=== PATIENT | female | born 1945 | race Caucasian/White ===

== ENCOUNTER 2018-03-27 09:12 | Day surgery (SDC) | payer MEDICARE ==
[~2018-03-27] VITALS: Ht 147.3 cm; Wt 89.8 kg
[~2018-03-27 09:12] MED LIST: CALCIUM 1000 + D PO; DETROL1 MG PO; FISH OIL300 MG PO; FOSAMAX70 MG PO; LASIX 20 MG TAB20 MG PO; LASIX20 MG PO; LIPITOR20 MG PO; PANTOPRAZOLE SO40 MG PO; PRILOSEC40 MG PO; ROSUVASTATIN CA10 MG PO; SIMVASTATIN20 MG PO; SYNTHROID75 MCG PO
[2018-03-27 11:39] VITALS: BP 122/58
[2018-03-27] MEDS ORDERED: CIPROFLOXACN500 MG PO (11:48)
[2018-03-27] MEDS ORDERED: METRONIDAZOL500 MG PO (11:48)
== END 2018-03-27 12:04 | disposition home or self-care (01) ==
LOC: ENDO 09:12 → ORM 13:45 → ENDO 13:45
PROVIDERS: ATTEND Surgery
PROC: 0DJD8ZZ Inspection of Lower Intestinal Tract, Via Natural or Artificial Opening Endoscopic (ICD-10-PCS; principal; 2018-03-27)
DX: R15.9 Full incontinence of feces (principal); K57.33 Diverticulitis of large intestine without perforation or abscess with bleeding; Q43.8 Other specified congenital malformations of intestine

== ENCOUNTER 2018-07-05 08:57 | Emergency (ER) | payer MEDICARE ==
[~2018-07-05] VITALS: Ht 147.3 cm; Wt 100.0 kg
[~2018-07-05 08:57] MED LIST changes: +CIPROFLOXACN500 MG PO; +METRONIDAZOL500 MG PO
[2018-07-05] MEDS ORDERED: PERCOCET 5/325M1 TAB PO (09:20)
[2018-07-05] MEDS ORDERED: BACTRIM DS1 TAB PO (09:20)
[2018-07-05 09:32] LABS: IMMATURE GRANULOCYTES 1.5 % (0.0-5.0); MEAN CELL VOLUME 90.2 fL CALC (80.0-100.0); MEAN CORPUSCULAR HGB 28.7 pG CALC (26.0-32.0); MEAN CORPUSCULAR HGB CONC 31.8 g/L CALC (32.0-36.0); NEUT# 18.23 thou/uL (2.00-7.15); RED BLOOD COUNT 3.17 mill/uL (4.20-5.60); RED CELL DISTRI WIDTH 15.1 % (11.5-15.5)
[2018-07-05 09:35] LABS: HEMOGLOBIN 9.1 g/dl (12.0-16.0)
[2018-07-05 09:36] LABS: HEMATOCRIT 28.6 % (37.0-47.0)
[2018-07-05 09:48] LABS: ALKALINE PHOSPHATASE 96 u/l (38-126); ANION GAP 15 (6-22 (CALC)); BILIRUBIN, TOTAL 0.5 mg/dL (0.0-1.4); BUN 7 mg/dL (8-23); BUN/CREATININE RATIO 12 (12-20 (CALC)); CARBON DIOXIDE 23 mmol/l (22-30); CHLORIDE 103 mmol/l (95-108); CREATININE 0.6 mg/dL (0.5-1.0); GFR > 60 ML/MIN (>=60 (CALC)); GFR FOR AFR.AMER. > 60 ML/MIN (>=60 (CALC)); POTASSIUM 4.5 mmol/l (3.5-5.1); SGOT/AST 29 u/l (9-36); SODIUM 136 mmol/l (137-146)
[2018-07-05 09:49] LABS: ALBUMIN 2.9 g/dL (3.2-5.0); TOTAL PROTEIN 5.6 g/dL (6.3-8.2)
[2018-07-05 13:03] VITALS: BP 115/82
== END 2018-07-05 13:03 ==
LOC: ED 08:57
PROVIDERS: Emergency Medicine
DX: T81.31XA Disruption of external operation (surgical) wound, not elsewhere classified, initial encounter (principal); E78.5 Hyperlipidemia, unspecified; Y83.6 Removal of other organ (partial) (total) as the cause of abnormal reaction of the patient, or of later complication, without mention of misadventure at the time of the procedure; Z90.49 Acquired absence of other specified parts of digestive tract
CPT/HCPCS: Q9967

== ENCOUNTER 2024-01-01 13:45 | Inpatient (IN) | payer MEDICARE ==
[~2024-01-01] VITALS: Ht 147.3 cm; Wt 87.4 kg
[~2024-01-01 13:45] MED LIST changes: +BACTRIM DS1 TAB PO; +BUMETANIDE1 MG PO; +LEVOFLOXACIN500MG PO; +LEVOTHYROXIN75 MC1 PO; +OMEPRAZOLE20 M3 PO; +PERCOCET 5/321 COMBO PO; +PERCOCET 5/325M1 TAB PO; +STIOLTO RESPIMA1 AER; -SYNTHROID75 MCG PO
[2024-01-02] MEDS ORDERED: FAMOTIDINE 10MG/ML 2ML SDV IV ONE (07:12)
[2024-01-02] MEDS ORDERED: LACTATED RINGER'S 1,000 ML IV ONE (07:12)
[2024-01-02] MEDS ORDERED: CLINDAMYCIN PHOSPHATE 50 ML IV ONE (07:12)
[2024-01-02] MEDS ORDERED: POTASSIUM CHLORIDE 20MEQ 100 ML IV SCH (08:30)
[2024-01-02] MEDS ORDERED: D5 1/2 NaCL W/KCL 40MEQ 1,000 ML IV PRN (08:55)
[2024-01-02] MEDS ORDERED: HYDROmorphone HCL 2 MG/AMP IV PRN (08:55)
[2024-01-02] MEDS ORDERED: ONDANSETRON HCl 4 MG/2 ML SDV IV PRN (08:55)
[2024-01-02] MEDS ORDERED: oxyCODONE 5MG/ ACETAMINOPHEN 325MG TAB PO PRN (08:55)
[2024-01-02] MEDS ORDERED: LABETALOL HCL 20 MG/ 4 ML CARTRG IV PRN (09:00)
[2024-01-02] MEDS ORDERED: KETOROLAC TROMETHAMINE 15 MG/ML SDV ONE (09:05)
[2024-01-02] MEDS ORDERED: HYDROmorphone HCL 2 MG/AMP ONE (09:25)
[2024-01-02] MEDS ORDERED: SODIUM CHLORIDE 0.9% 10 ML SYR ONE (09:59)
--- NOTE | 2024-01-02 10:15 | NUR ---
PT ARRIVED TO [facility] FROM THE OR VIA STRETCHER. BEDSIDE REPORT GIVEN. PATIENT A&OX3. BREATHING EVEN AND UNLBAORED ON ROOM AIR. LUNG SOUNDS CLEAR. 20G IV IN RAC. CENTRAL LINE IN LEFT UPPER CHEST. PT COMPLAINED OF PAIN IN THE ABD AREA; RATED AT A 2. COMPLAINTS OF NAUSEA. ZOFRAN AND TORODOL GIVEN. FAMILY MEMBER AT BEDSIDE. BED IN LOWEST POSITION. CALL LIGHT WITHIN REACH, VERBALIZED UNDERTSANDING OF USE. NO FURTHER NEEDS AT THIS TIME.
[2024-01-02 10:59] VITALS: BP 123/51
[2024-01-02] MEDS ORDERED: Levofloxacin 500 mg Premix 100 ML IV SCH (11:00)
--- NOTE | 2024-01-02 11:45 | NUR ---
SETUP ASSISTANCE PROVIDED WITH LUNCH TRAY
[2024-01-02] MEDS ORDERED: KETOROLAC TROMETHAMINE 15 MG/ML SDV IV SCH (13:30)
[2024-01-02] MEDS ORDERED: STERILE WATER FOR IRRIGATION 1,000 ML BTL IR ONE (14:22)
[2024-01-02] MEDS ORDERED: SODIUM CHLORIDE 1,000 ML BTL IR ONE (14:22)
[2024-01-02 14:38] VITALS: BP 99/43
--- NOTE | 2024-01-02 14:45 | NUR ---
VISITOR AT BEDSIDE, PT DENIES ANY NEEDS AT THIS TIME
[2024-01-02] MEDS ORDERED: LACTATED RINGER'S 1,000 ML BAG IV ONE (15:16)
[2024-01-02] MEDS ORDERED: SUGAMMADEX SODIUM 200 MG/2 ML SDV IV ONE (15:16)
[2024-01-02] MEDS ORDERED: ROCURONIUM BROMIDE 10 MG/ML 5ML VIAL IV ONE (15:16)
[2024-01-02] MEDS ORDERED: LIDOCAINE HCL 2% 2ML SDV IV ONE (15:16)
[2024-01-02] MEDS ORDERED: PHENYLEPHRINE HCL 10 MG/ML VIAL IV ONE (15:16)
[2024-01-02] MEDS ORDERED: ACETAMINOPHEN 1,000 MG/100 ML VIAL IV ONE (15:16)
[2024-01-02] MEDS ORDERED: PROPOFOL 200 MG/20 ML VIAL IV ONE (15:16)
[2024-01-02] MEDS ORDERED: SUCCINYLCHOLINE CHLORIDE 20 MG/ML 10ML VIAL IV ONE (15:16)
--- NOTE | 2024-01-02 17:00 | NUR ---
SETUP ASSISTANCE PROVIDED WITH DINNER TRAY, PT DENIES ANY NEEDS AT THIS TIME
--- NOTE | 2024-01-02 18:02 | NUR ---
PT SITTING UP IN THE BED ON HER CELL PHONE, DENIES ANY NEEDS AT THIS TIME, CALL FRAUSTO WITHIN REACH
[2024-01-02 19:24] VITALS: BP 115/55
[2024-01-02 19:40] VITALS: BP 115/55
--- NOTE | 2024-01-02 20:00 | NUR ---
BEDSIDE SHIFT REPORT COMPLETED. RESTING IN BED WITH EYES CLOSED. CALL LIGHT IN REACH. WOUND VAC IN PLACE. NO AIR LEAKS NOTED.
--- NOTE | 2024-01-02 20:45 | NUR ---
C/O PAIN IN ABDOMEN, GAVE DILAUDID PER PRN ORDER. WOUND VAC IN PLACE.
--- NOTE | 2024-01-02 22:30 | NUR ---
GOOD RESULTS FROM DILAUDID. C/O NAUSEA. GAVE PRN ZOFRAN WITH GOOD RESULTS. RESTING IN BED. CALL LIGHT IN REACH.
--- NOTE | 2024-01-03 03:00 | NUR ---
RESTING IN BED. PRN DILAUDID GIVEN FOR C/O ABDOMINAL PAIN WITH GOOD RESULTS. WOUND VAC IN PLACE. NO AIR LEAKS NOTED. SEROSANGUINEOUS DRAINAGE NOTED IN COLLECTION CONTAINER.
[2024-01-03 03:38] VITALS: BP 114/53
[2024-01-03 04:16] VITALS: BP 114/53
[2024-01-03 05:14] LABS: BASO% 0.4 % (0-3); EOS% 0.8 % (0-8); IMMATURE GRANULOCYTES 0.1 % (0.0-5.0); MEAN CELL VOLUME 89.8 fL CALC (80.0-100.0); MEAN CORPUSCULAR HGB 28.7 pG CALC (26.0-32.0); MEAN CORPUSCULAR HGB CONC 31.9 g/dL CAL (32.0-36.0); MONO% 7.5 % (2-13); NEUT# 5.3 thou/uL (2.00-7.15); NEUT% 63.2 % (42-76); RED BLOOD COUNT 3.14 mill/uL (4.20-5.60); RED CELL DISTRI WIDTH 12.8 % (11.5-15.5)
[2024-01-03 05:18] LABS: HEMATOCRIT 28.2 % (37.0-47.0)
[2024-01-03 05:46] LABS: BILIRUBIN, TOTAL 0.4 mg/dL (0.02-1.3); CREATININE 0.7 mg/dL (0.5-1.0); TOTAL PROTEIN 5.6 g/dL (6.3-8.2)
[2024-01-03 05:47] LABS: ALBUMIN 2.9 g/dL (3.2-5.0); POTASSIUM 3.8 mmol/l (3.5-5.1)
[2024-01-03 06:56] VITALS: BP 117/57
--- NOTE | 2024-01-03 08:00 | NUR ---
PT IN BED WITH HOB UP EATING BREAKFAST. PT IS ALERT AND OREINTED X 3. PT HAS NO C/O PAIN AT THIS TIME. PT HAS TRIPLE LUMENTTO LEFT SUBCLAVIAN WITH D5 1/2 NS W 40 K INFUSING @ 100 ML/HR. PT LUNGS CLEAR THEOUGHOUT, IS AT BEDSIDE AND ENCOURAGED TO USE. WOUND VAC TO ABD WOUND, CLEAN AND INTACT. SCDS ON TO BLE. PT HAS BEDSIDE COMMODE FOR TOIELTING NEEDS. PT HAS CALL LIGHT WITHIN REACH AND SAFETY MEASURES IN PLACE.
--- NOTE | 2024-01-03 12:00 | NUR ---
PT SITTING UP IN CHAIR AT BEDSIDE, EATING LUNCH AND TOLERATING WELL. PT HAS NO C/O PAIN AT THIS TIME. PT HAS CALL LIGHT WITHIN REACH AND SAFETY MEASURES IN PLACE AT THIS TIME.
[2024-01-03 15:14] VITALS: BP 99/42
--- NOTE | 2024-01-03 16:00 | NUR ---
PT SITTING UP IN CHAIR WITH FAMILY IN RM AT BEDSIDE. PT HAS NO C/O PAIN AT THIS TIME. PT HAS CALL LIGHT WITHIN REACH AND SAFETY MEASURES IN PLACE AT THIS TIME.
[2024-01-03 19:00] VITALS: BP 134/53
[2024-01-03 19:04] VITALS: BP 134/53
--- NOTE | 2024-01-03 20:00 | NUR ---
ALERT ORIENTED X4. RESP EVEN AND UNLABORED. STATED BEGINNING TO HAVE SOME PAIN. WOUND VAC IN PLACE. NO AIR LEAKS NOTED. SCDS IN PLACE. CALL LIGHT IN REACH.
--- NOTE | 2024-01-03 20:45 | NUR ---
MEDICATED WITH IV DILAUDID FOR C/O PAIN TO ABDOMEN. CONSENT SIGNED FOR PROCEDURE IN AM BEFORE PAIN MEDICATION ADMINISTERED. ZOFRAN GIVEN DUE TO PATIENT GETTING NAUSEA PREVIOUS TIME WAS GIVVEN DILAUDID. OFFERED SNACK, PATIENT DECLINED.
--- NOTE | 2024-01-03 23:29 | NUR ---
PATIENT DID NOT WANT SCHEDULED TORADOL. STATED SHE DID NOT HAVE ANY PAIN AT THE MOMENT. STATED SHE WOULD ASK FOR SOMETHING IF SHE NEEDS IT. AMBULATED TO BATHROOM WITH ONE PERSON ASSIST. WOUND VAC INTACT ON ABDOMEN. BLOOD RED BLOODY DRAINAGE NOTED IN COLLECTION CONTAINER. AWARE OF NPO FOR DRAINAGE OF WOUND AND WOUND VAC REPLACEMENT IN AM. CONSENT SIGNED. CALL LIGHT IN REACH.
[2024-01-04] VITALS (13 sets, daily range): BP systolic 121–150; BP diastolic 50–82
--- NOTE | 2024-01-04 04:00 | NUR ---
ASSISTED TO BEDSIDE COMMODE WITH STANDBY ASSIST. CURRENTLY NPO FOR WOUND VAC CHANGE IN OR THIS AM WITH DR. Andino.TLC TO LEFT SUBCLAVIAN FLUSHES WELL. NO S/S OF IRRITATION. WOUND VAC INTACT. NO AIR LEAKS. CALL LIGHT IN REACH.
[2024-01-04] MEDS ORDERED: LACTATED RINGER'S 1,000 ML IV ONE (07:45)
[2024-01-04] MEDS ORDERED: FAMOTIDINE 10MG/ML 2ML SDV IV ONE (07:54)
[2024-01-04] MEDS ORDERED: LIDOcaine HCl 1% (Local Anesth.) 20 ML VIAL ONE (08:06)
[2024-01-04] MEDS ORDERED: BUMETANIDE 1 MG/TAB PO SCH (09:30)
[2024-01-04] MEDS ORDERED: SODIUM CHLORIDE 0.9% 1,000 ML IV ONE (09:56)
[2024-01-04] MEDS ORDERED: STERILE WATER FOR IRRIGATION 1,000 ML BTL IR ONE (09:56)
[2024-01-04] MEDS ORDERED: PROPOFOL 200 MG/20 ML VIAL IV ONE (15:21)
--- NOTE | 2024-01-04 17:19 | NUR ---
Pt is sitting in the chair eating dinner. Pt denies pain as of this time. plan of care is ongoing.
--- NOTE | 2024-01-04 19:30 | NUR ---
patient in recliner watching tv. bed side report completed. patent able to make needs known. assisted patient to bed. lung sounds clear, equal pupils 3. no visual signs of distress at this time. bed in lowest position, call light within reach.
--- NOTE | 2024-01-04 22:22 | NUR ---
PATIENT IN BED ASLEEP. NO VISUAL SIGNS OF DISTRESS NOTED. RESPONDS TO VERBAL STIMULI. PATIENTY CAN MAKE NEEDS KNOWN. BED AT LOWEST POSITION, CALL FRAUSTO AND PERSONAL ITEMS WITHIN REACH.
--- NOTE | 2024-01-05 00:05 | NUR ---
PATIENT IN BED ASLEEP, EYES ARE CLOSED. RESPONDS TO VERBAL STIMULI. BED AT LOWEST POSITION, CALLBELL WITH IN REACH.
[2024-01-05 04:35] VITALS: BP 120/58
--- NOTE | 2024-01-05 04:42 | NUR ---
patient in bed asleep. responds to verbal stimuli, able to make needs known. patient wanted to use bed sise commode, assisted to bed side commode. once finished assisted patient back to bed. call light with in reach bed in lowest position.
[2024-01-05] MEDS ORDERED: LEVOTHYROXINE SODIUM 75 MCG/TAB PO SCH (06:00)
[2024-01-05 06:29] VITALS: BP 139/54
--- NOTE | 2024-01-05 07:20 | NUR ---
REPORT RECEIVED FROM ADRIAN BARBOSA
[2024-01-05] MEDS ORDERED: PANTOPRAZOLE SODIUM Sesquihydr 40 MG/TAB PO SCH (09:00)
[2024-01-05] MEDS ORDERED: SIMVASTATIN 5 MG TAB PO SCH (09:00)
--- NOTE | 2024-01-05 09:00 | NUR ---
DR. DE SANTIAGO AT BEDSIDE DISCUSSING POC WITH PT.
--- NOTE | 2024-01-05 09:48 | NUR ---
AT BEDSIDE DISCUSSING POC WITH PT.
--- NOTE | 2024-01-05 10:52 | NUR ---
PT RESTING IN SEMI FOWLERS POSITION,A&O X3;ASSESSMENT COMPLETED;PT POD #3 ;PT DENIES ANY CURRENT PAIN OR DISCOMFORTS,PAIN SCALE AND REPORTING EDUCATED;RESPIRATIONS EVEN AND UNLABORED ON RA,CLEAR LUNG SOUNDS;ABDOMEN SOFT ON PALPATION AND ACTIVE IN ALL 4 QUADRANTS;WOUND VAC NOTED TO RIGHT QUADRANT RUNNING AT 125MMHG,SEROSANGUINEOUS FLUID NOTED;STRONG PEDAL PULSES;SKIN INTACT;LEFT SUBCLAVIAN TL FLUSHED AND PATENT, D5 1/2 NS W 40MEQ INFUSING WITH EASE PER ORDER;PT DENIES ANY ADDITIONAL NEEDS AND IS ENCOURAGED TO CALL FOR ASSISTANCE IF NEEDED;FALL PRECAUTIONS IN PLACE WITH BED IN THE LOWEST POSITION AND CALL LIGHT IN REACH;FREQUENT ROUNDS MADE.
--- NOTE | 2024-01-05 11:30 | NUR ---
PT RESTING IN RECLINER WATCHING TV;PT DENIES ANY CURRENT PAIN OR DISCOMFORTS;RESPIRATIONS REMAIN EVEN AND UNLABORED ON RA;WOUND VAC CONTINUES TO RUN TO 125MMHG WITH EASE;RT SUB TL INFUSING WITH EASE PER ORDER;PT DENIES ANY ADDITIONAL NEEDS AND IS ENCOURAGED TO CALL FOR ASSISTANCE IF NEEDED;FALL PRECAUTIONS REMAIN IN PLACE WITH CALL LIGHT IN REACH;FREQUENT ROUNDS MADE.
--- NOTE | 2024-01-05 15:30 | NUR ---
PT REMAINS OOB RESTING IN RECLINER;RESPIRATIONS EVEN AND UNLABORED ON RA;PT DENIES ANY CURRENT PAIN OR DISCOMFORTS;RT SUB TL CONTINUES TO INFUSE WITH EASE PER ORDER;WOUND VAC PATENT RUNNING AT 125;PT DENIES ANY ADDITIONAL NEEDS AND IS ENCOURAGED TO CALL FOR ASSISTANCE IF NEEDED;CALL LIGHT IN REACH;FREQUENT ROUNDS MADE.
[2024-01-05 15:44] VITALS: BP 111/40
[2024-01-05 18:36] VITALS: BP 113/50
[2024-01-05 18:51] VITALS: BP 113/50
--- NOTE | 2024-01-05 20:00 | NUR ---
REPORT RECEIVED FROM DAYSHIFT NURSE. PT UP IN RECLINING CHAIR WATCHING TELEVISION. PT A&O X3, AND ABLE TO MAKE NEEDS KNOWN. PT DOES NOT SHOW ANY S&S OF DISTRESS AT THIS TIME. UPPER LOBES CLEAR, AND LOWER LOBES DIMINSHED UPON AUSCULTATION OF LUNG SOUNDS. BOWEL SOUNDS ARE HYPOACTIVE, BUT ABDOMEN IS SOFT. PEDAL PULSES ARE WEAK, TRACE EDEMA NOTED TO BILATERAL FEET. PT REMAINS ON ROOM AIR. WOUND VAC NOTED TO RUQ, MINOR REDNESS NOTED AROUND SITE. 100 CC OF REDDISH-BROWN FLUID NOTED IN CANISTER. NO ACTIVE DRAINAGE IN TUBING AT THIS TIME. PT EDUCATED ON MEDICATION SCHEDULE AND POC. CALL LIGHT IN REACH, AND SAFETY PRECAUTIONS IN PLACE.
--- NOTE | 2024-01-06 00:30 | NUR ---
PT RESTING IN BED WITH EYES CLOSED. RESPIRATIONS ARE EVEN AND UNLABORED, AND PT IS EASILY AROUSABLE. WOUND VAC REMAIN IN PLACE. SCD IN PLACE TO BLE. NO S&S OF DISTRESS NOTED FROM PT AT THIS TIME. CALL LIGHT IN REACH, AND SAFETY PRECAUTIONS IN PLACE.
[2024-01-06 04:05] VITALS: BP 142/74
--- NOTE | 2024-01-06 04:10 | NUR ---
PT RESTING IN BED WITH EYES CLOSED. RESPIRATIONS ARE EVEN AND UNLABORED, PT IS EASILY AROUSABLE. NO S&S OF DISTRESS NOTED AT THIS TIME. SCD IN PLACE TO BLE. CALL LIGHT IN REACH, AND SAFETY PRECAUTIONS IN PLACE.
[2024-01-06 07:22] VITALS: BP 134/70
--- NOTE | 2024-01-06 07:51 | NUR ---
Pt resting, completing As. No compaints, no distress.
--- NOTE | 2024-01-06 11:00 | NUR ---
TALKED TO DR SWENSON TO CLARIFY PT'S NPO DIET ORDER. PT IS TO BE NPO AFTER MIDNIGHT PER DR FRANCISCO.
--- NOTE | 2024-01-06 11:55 | NUR ---
Pt sitting in chair bedside, completing ADLs. Pt smiles easily/ No distress, no complaints.
[2024-01-06 13:36] LABS: BILIRUBIN, TOTAL 0.3 mg/dL (0.02-1.3); CREATININE 1.3 mg/dL (0.5-1.0); TOTAL PROTEIN 6.7 g/dL (6.3-8.2)
[2024-01-06 13:37] LABS: ALBUMIN 3.6 g/dL (3.2-5.0); POTASSIUM 5.2 mmol/l (3.5-5.1)
[2024-01-06] MEDS ORDERED: DEXTROSE 5% w/NACL 0.45 1,000 ML IV PRN (14:00)
[2024-01-06 15:51] VITALS: BP 116/59
--- NOTE | 2024-01-06 16:00 | NUR ---
Pt sitting bedside, family visiting. Pt smailes easily. No distress, no complaints.
[2024-01-06 19:00] VITALS: BP 115/53
--- NOTE | 2024-01-06 19:41 | NUR ---
REPORT RECIEVED FORM [facility] NURSE, EMMY CAMPBELL. PT RESTING IN RECLINER CHAIR. PT IS A&O X3, AND ABLE TO MAKE NEEDS KNOWN. PT IS ON ROOM AIR. LUNGS SOUNDS CLEAR UPON AUSCULTATION. BOWEL SOUNDS ACTIVE X4 QUADRANTS. WOUND VAC NOTED TO RIGHT SIDE OF ABDOMEN. SKIN SURROUNDING WOUND VAC IS INTACT. REDDISH-BROWN DRAINAGE NOTED IN WOUND VAC CANISTER. PT ASSISTED TO BSC AND TO BED. PT TOLERATED WELL WITH NO COMPLAINTS VOICED. SCD IN PLACE AT THIS TIME. PT EDUCATED ON MEDICATION SCHEDULE AND POC. FALL PRECAUTIONS REINFORCED AT THIS TIME. CALL LIGHT IN REACH, AND SAFETY PRECAUTIONS IN PLACE.
[2024-01-06 19:51] VITALS: BP 115/53
[2024-01-07] VITALS (10 sets, daily range): BP systolic 133–156; BP diastolic 53–82
--- NOTE | 2024-01-07 00:14 | NUR ---
PT RESTING IN BED WITH EYES CLOSED, RESPIRATIONS ARE EVEN AND UNLABORED, PT IS EASILY AROUSABLE. SCD REMAIN IN PLACE. PT DOES NOT SHOW ANY S&S OF DISTRESS AT THIS TIME. CALL LIGHT IN REACH, AND SAFETY PRECAUTIONS IN PLACE.
--- NOTE | 2024-01-07 04:00 | NUR ---
PT RESTING IN BED WITH EYES CLOSED. RESPIRATIONS ARE EVEN AND UNLABORED. PT IS EASILY AROUSABLE. WOUND VAC IN PLACE AT 125. NO COMPLAINTS OFFERED FROM THE PT AT THIS TIME. NO S&S OF DISTRESS NOTED. CALL LIGHT IN REACH, AND SAFETY PRECAUTIONS IN PLACE.
--- NOTE | 2024-01-07 07:14 | NUR ---
PATIENT LAYING IN BED. PATIENT A&OX4 AND ABLE TO MAKE NEEDS KNOWN. PATIENT ABDOMEN SOFT, WOUNDVAC TO RIGHT LOWER QUADRANT IN PLACE, RESPIRATIONS EVEN AND UNLABORED. PATIENT DENIES ANY NEEDS AT THIS TIME. WILL CONTINUE TO MONITOR.
--- NOTE | 2024-01-07 11:39 | NUR ---
PATIENT LAYING IN BED QUIETLY. PATIENT IS WAITING TO GO TO OR FOR A WOUND VAC CHANGE OUT WITH DR. ELIZABETH. PATIENT DENIES ANY NEEDS AT THIS TIME. WILL CONTINUE TO MONITOR.
[2024-01-07] MEDS ORDERED: FAMOTIDINE 10MG/ML 2ML SDV IV ONE (13:29)
[2024-01-07] MEDS ORDERED: SODIUM CHLORIDE 0.9% 1,000 ML IV ONE (13:33)
[2024-01-07] MEDS ORDERED: PROPOFOL 200 MG/20 ML VIAL IV ONE (15:22)
--- NOTE | 2024-01-07 15:53 | NUR ---
PATIENT SITTING UP IN BED. FAMILY AT BEDSIDE. PATIENT DENIES ANY NEEDS AT THIS TIME. PATIENT WOUND VAC WAS CHANGED TODAY. WILL CONTINUE TO MONITOR.
--- NOTE | 2024-01-07 20:00 | NUR ---
REPORT RECEIVED FROM DAYSHIFT NURSE. TERRA RN. PT RESTING IN BED TALKING ON TELEPHONE. PT IS A&O X3, AND ABLE TO MAKE NEEDS KNOWN. LUNG SOUNDS CLEAR UPON AUSCULTATION. BOWEL SOUNDS HYPOACTIVE X4 QUADRANTS, ABDOMEN IS SOFT UPON PALPATION. SCD IN PLACE TO BLE. WOUND VAC NOTED IN (R) ABDOMEN, @125 MMHG. CANISTER TO WOUND VAC AT THIS TIME IS EMPTY. NO COMPLAINTS OFFERED FROM PT AT THIS TIME. (L) PEDAL PULSE WEAK. PT EDUCATED ON MEDICATION SCHEDULE AND POC. CALL LIGHT IN REACH, AND SAFETY PRECATIONS IN PLACE.
--- NOTE | 2024-01-08 00:15 | NUR ---
PT RESTING IN BED WITH EYES CLOSED. NO COMPLAINTS OFFERED AT THIS TIME. WOUND VAC IN PLACE. NO S&S OF DISTRESS NOTED AT THIS TIME. RESPIRATIONS ARE EVEN AND UNLABORED. PT IS EASILY AROUSABLE. CALL LIGHT IN REACH, AND SAFETY PRECAUTIONS IN PLACE.
[2024-01-08 03:33] VITALS: BP 107/45
--- NOTE | 2024-01-08 04:00 | NUR ---
PT RESTING IN BED WITH EYES CLOSED. RESPIRATIONS ARE EVEN AND UNLABORED, PT IS EASILY AROUSABLE. SCD REMAIN IN PLACE TO BLE. WOUND VAC IN PLACE. NO S&S OF DISTRESS NOTED FROM PT AT THIS TIME. CALL LIGHT IN REACH, AND SAFETY PRECAUTIONS IN PLACE.
[2024-01-08 06:57] VITALS: BP 131/65
--- NOTE | 2024-01-08 08:54 | NUR ---
PT RESTING IN BED, BED LOCKED AND LOW, CALL LIGHT WITHIN REACH. NO DISTRESS REPORTED OR OBSERVED. PLAN OF CARE REVIEWED WITH PT, QUESTIONS ENCOURAGED AND ANSWERED TO BEST ABILITY WITHIN SCOPE OF PRACTICE. NO FURTHER QUESTIONS AT THIS TIME. PT ENCOURAGED TO REACH OUT TO STAFF FOR ANY FURTHER QUESTIONS OR NEEDS. WILL CONTINUE TO MONITOR.
[2024-01-08 10:25] VITALS: BP 93/47
[2024-01-08 15:23] VITALS: BP 101/50
[2024-01-08 19:00] VITALS: BP 117/70
[2024-01-08 19:06] VITALS: BP 117/70
--- NOTE | 2024-01-08 20:00 | NUR ---
PT WAS UP TO BSC W/SB ASSIST, THEN PLACED IN BED FOR RESTING. PT NO S/S OF DISTRESS, DENIES PAIN, WOUND VAC IN PLACE W/O LEAK. CALL LIGHT WITHIN REACH.
[2024-01-09 03:32] VITALS: BP 123/43
[2024-01-09 04:00] VITALS: BP 123/43
--- NOTE | 2024-01-09 04:00 | NUR ---
PT RESTING IN BED W/EYES CLOSED. PT WAS AWAKENED FOR LAB DRAW THIS AM. THIS NURSE ATTEMPTED TO DRAW BLOOD FROM CENTRAL LINE, UNABLE TO PULL SUFFICIENT AMOUNT FOR LAB TUBES. STRAIGHT STICK NEEDED TO BE PERFORMED. CALL LIGHT AND BELONGINGS WITHIN REACH.
[2024-01-09 06:03] LABS: CREATININE 0.7 mg/dL (0.5-1.0); POTASSIUM 4.2 mmol/l (3.5-5.1)
[2024-01-09 07:13] VITALS: BP 131/47
--- NOTE | 2024-01-09 07:30 | NUR ---
Report received from retail shift supervisor nurse. Patient is resting in bed, denies any pain at this time. A&Ox4, on room air, wound vac in place to abdomen. All needs addressed at this time. Call light within reach.
--- NOTE | 2024-01-09 09:41 | NUR ---
Dr Hutchins at bedside changing wound vac, pre medicated patient per MD request.
[2024-01-09] MEDS ORDERED: LORTAB 5/3255 MG PO (09:49)
[2024-01-09] MEDS ORDERED: HYDROmorphone HCL 2 MG/AMP IV SCH (10:00)
--- NOTE | 2024-01-09 10:00 | NUR ---
Per Dr Hutchins, patient will be discharged home today with wound vac.
--- NOTE | 2024-01-09 11:23 | NUR ---
Discharge instructions given. Patient verbalizes understanding of instructions. Discharged in stable condition, staff transported via Wheelchair with son at bedside to vehicle to go home. All belongings sent with pt. Central line removed. Wound vac in place.
== END 2024-01-09 11:15 | DRG 857 ==
LOC: MS2 01-02 06:54 → OR 01-02 08:00 → MS2 01-09 11:15
PROVIDERS: ADMIT Surgery; ATTEND Surgery
PROC: 0W9F0ZZ Drainage of Abdominal Wall, Open Approach (ICD-10-PCS; principal; 2024-01-02)
PROC: 0JD80ZZ Extraction of Abdomen Subcutaneous Tissue and Fascia, Open Approach (ICD-10-PCS; 2024-01-02)
PROC: 05H633Z Insertion of Infusion Device into Left Subclavian Vein, Percutaneous Approach (ICD-10-PCS; 2024-01-02)
PROC: 2W03X6Z Change Pressure Dressing on Abdominal Wall (ICD-10-PCS; 2024-01-04)
PROC: 2W03X6Z Change Pressure Dressing on Abdominal Wall (ICD-10-PCS; 2024-01-04)
PROC: 2W03X6Z Change Pressure Dressing on Abdominal Wall (ICD-10-PCS; 2024-01-09)
DX: T81.42XA Infection following a procedure, deep incisional surgical site, initial encounter (principal); L02.211 Cutaneous abscess of abdominal wall; L76.32 Postprocedural hematoma of skin and subcutaneous tissue following other procedure; I10 Essential (primary) hypertension; E78.5 Hyperlipidemia, unspecified; K21.9 Gastro-esophageal reflux disease without esophagitis; Y83.8 Other surgical procedures as the cause of abnormal reaction of the patient, or of later complication, without mention of misadventure at the time of the procedure; Z90.49 Acquired absence of other specified parts of digestive tract; Z01.818 Encounter for other preprocedural examination; Z11.52 Encounter for screening for COVID-19; S30.1XXD Contusion of abdominal wall, subsequent encounter
CPT/HCPCS: J0131; J0736; J1956